=== PATIENT | female | born 1975 | race Caucasian/White ===

== ENCOUNTER → 2022-06-17 14:05 | Outpatient (CLI) | payer OTHER, MEDICAID, SELFPAY ==
--- NOTE | 2022-06-17 | PATH_ITS ---
Note [facility] Accession Number: [id number] TESTS RESULT FLAG UNITS REF RANGE LAB Clinician Provided Cytology Information No. of containers..01 Other (Miscellaneous) No. of containers..02 Previously Prepared Cytology Slide Source: THYROID ISTHMUS NODULE # 7 DIAGNOSIS: THYROID ISTHMUS NODULE # 7 INCONCLUSIVE. [place] CATEGORY III. ATYPIA OF UNDETERMINED SIGNIFICANCE. MOLECULAR STUDIES PENDING; RESULTS WILL BE REPORTED SEPARATELY. Pathologist ICD10: R89.6, E04.2 Signed out by: Eli Ferro MD, Pathologist NPI- [id number] Performed by: Ermias Murillo, [employer] ([facility]) Gross description: 30 CC, RED, CLEAR RECIEVED: IN CYTOLYT WITH 6 ALCOHOL FIXED AND 6 QUICK STAINED SLIDES ALSO 1 RNA VIAL WAS RECEIVED.VO /VDU 06/18/2022 [id number] [facility] FLAG LEGEND: L-Low Normal,H-High Normal,LL-Alert Low,HH-Alert High <-Panic Low,>-Panic High,A-Abnormal,AA-Critical Abnormal Performed at: 01 =[facility] [address], [place] [address] Diogenes Hurst MD, Performed at: [facility] [address], [place], [place] [id number] MD Diogenes Hurst MD Phone: [phone]
--- NOTE | 2022-06-17 | DI.US.S_ITS ---
PROCEDURE: US FINE NEEDLE ASPIRATION INDICATIONS: Nontoxic multinodular goiter TECHNIQUE: The indications, alternatives, benefits, risks, and complications of the procedure were explained to the patient. Written informed consent was obtained and placed in the chart. The area of interest was examined sonographically and a site was chosen for ultrasound guided percutaneous sampling. The skin was prepared and draped in the usual fashion, and anesthetized with 1% lidocaine infiltrated from the skin down to the lesion. Multiple passes were then performed, with contents emptied into an appropriate pathology specimen container. A bandage was applied to the area of access at completion of the study. COMPARISON: None. FINDINGS: Location(s) of lesion(s) sampled: [place]: 25 gauge hypodermic needles. Number of passes: 6 Medications: 1% lidocaine for local anaesthesia. Complications: None. IMPRESSION: Successful ultrasound-guided isthmus fine needle aspiration, with cytology results pending. Dictated by: Skyler Castaneda M.D. on 06/17/2022 at 16:07 Approved by: Skyler Castaneda M.D. on 06/17/2022 at 16:07
== END ==
PROVIDERS: Referring Provider Internal Medicine Endocrinology, Diabetes & Metabolism; Visit Provider Internal Medicine Endocrinology, Diabetes & Metabolism
DX: E04.2 Nontoxic multinodular goiter (principal)
CPT/HCPCS: 10005

== ENCOUNTER 2023-10-23 06:37 | Day surgery (SDC) | payer OTHER, MEDICAID, SELFPAY ==
[2023-10-23 07:10] VITALS: BP 131/68; PULSE 68; RESP 17; TEMP 36.2; O2SAT 100
--- NOTE | 2023-10-23 07:24 | P.HP_ITS ---
History of Present Illness History of Present Illness Date Patient Seen: 10/23/23 Time Patient Seen: 07:24 Chief complaint: SDC Narrative: Roxane is a 47-year-old woman here for a screening colonoscopy. She has never a colonoscopy before. [facility] Social History Smoking Status: Never smoker alcohol intake: never Meds Home Medications and Allergies Home Medications Medication Instructions Recorded Confirmed Type levothyroxine 125 mcg tablet 125 mcg PO DAILY 03/04/23 10/23/23 History losartan 25 mg tablet 25 mg PO DAILY #90 tabs 05/19/23 10/23/23 Rx Allergies Allergy/AdvReac Type Severity Reaction Status Date / Time amoxicillin Allergy Rash Verified 10/23/23 07:03 Exam Vital Signs (past 8 hours): - 10/23/23 07:10 Temperature 97.2 F L Pulse Rate 68 Respiratory Rate 17 Blood Pressure 131/68 Pulse Oximetry 100 Oxygen Delivery Method Room Air Oxygen Delivery Method Room Air Const General: healthy appearing Resp Effort & Inspection: normal respiratory effort Assessment & Plan Assessment and plan (1) Colon cancer screening: Status: Acute Plan We reviewed the risks and benefits of colonoscopy for colon cancer screening and she would like to proceed. Time-Based Coding :: [TOTAL MINUTES] spent with patient and on the chart (including review of chart, obtaining history, exam, reviewing outside data, placing orders, documenting exam and treatment plan, and counseling patient) on [DATE].
[2023-10-23] MEDS: LACTATED RINGERS 1,000 ML 42 ML IV (07:34)
[2023-10-23 07:57] VITALS: BP 83/46; PULSE 71; RESP 12; TEMP 36.6; O2SAT 100
[2023-10-23 08:01] VITALS: BP 90/51; PULSE 87; RESP 16; O2SAT 100
--- NOTE | 2023-10-23 08:01 | PM.OP.COLON ---
Operative Date/Time/Diagnoses Date of procedure: 10/23/23 Time of procedure: 08:01 Pre-op diagnosis: Colon cancer screening Post-op diagnosis: same Procedure & Clinicians Study performed: Colonoscopy Same procedure as scheduled: Yes Surgeon: Jonn Jennings Procedure Notes Procedure in detail: Surgeon: Jonn Jennings MD Anesthesia: Corrina Abdi CRNA Procedure: The patient was brought to the endoscopy suite, placed in left lateral decubitus position. The patient was connected to monitoring devices. A time-out was performed. Sedation was administered. Once the patient was adequately sedated, a digital rectal exam was performed and was normal. The scope was then inserted and advanced to proximally the sigmoid colon. The prep was inadequate to safely proceed. The procedure was terminated. The patient was awakened and brought to recovery. Scope withdrawal time: Not applicable Sedation time: 4 minutes EBL: 0 Findings: Inadequate prep Post-procedure Disposition: PACU
[2023-10-23 08:06] VITALS: BP 101/64; PULSE 64; RESP 18; O2SAT 100
[2023-10-23 08:10] VITALS: BP 112/61; PULSE 62; RESP 14; TEMP 36.6; O2SAT 100
== END 2023-10-23 08:18 | disposition home or self-care (01) ==
PROVIDERS: PCP Nurse Practitioner; Referring Provider Surgery; Visit Provider Surgery
PROC: 0DJD8ZZ Inspection of Lower Intestinal Tract, Via Natural or Artificial Opening Endoscopic (ICD-10-PCS; CPT 45378; principal; 2023-10-23 07:45)
DX: Z12.11 Encounter for screening for malignant neoplasm of colon (principal)
CPT/HCPCS: 45378; J2704